=== PATIENT | male | born 1995 | race African-American/Black ===

== ENCOUNTER 2017-06-26 20:33 | Emergency (ER) | payer OTHER ==
--- NOTE | 2017-06-26 20:54 | EDM.PDOC ---
ED HPI GENERAL MEDICAL PROBLEM - General Chief Complaint: Lower Extremity Injury/Pain Stated Complaint: PAIN LT ANKLE Time Seen by Provider: 06/26/17 20:45 Source of Information: Reports: Patient History Limitations: Reports: No Limitations - History of Present Illness INITIAL COMMENTS - FREE TEXT/NARRATIVE: HISTORY AND PHYSICAL: History of present illness: [Patient comes to the emergency room complaining of left ankle pain. States that he was playing basketball a [place] the [place], when he jumped up to catch a ball he landed on his left foot which was inverted. Complains of pain with weight bearing. Has had previous sprains to this ankle but no history of fracture surgeries. ] Review of systems: As per history of present illness and below otherwise all systems reviewed and negative. Past medical history: As per history of present illness and as reviewed below otherwise noncontributory. Surgical history: As per history of present illness and as reviewed below otherwise noncontributory. Social history: No reported history of drug or alcohol abuse. Family history: As per history of present illness and as reviewed below otherwise noncontributory. Physical exam: HEENT: Atraumatic, normocephalic. Extremities: Left ankle, foot, lower leg are atraumatic in appearance. Is tender to palpation over lateral malleolus and distal tib-fib. No swelling erythema or open wounds noted. No cords or calf pain noted. Neurovascular unremarkable. Capillary refill less than 2 seconds. Neuro: Awake, alert, oriented. Pain with dorsiflexion and extension. Exam nonfocal. Diagnostics: [L tib/fib x-ray L ankle x-ray] Impression: [Left ankle sprain] Plan: [Patient is notified that x-rays are negative for fracture. Patient is placed in an air splint. Tylenol or ibuprofen as needed for discomfort. Gentle stretching. Rest ice compression and elevation. Return to ER as needed as discussed. He is in agreement with today's discussion.] Definitive disposition and diagnosis as appropriate pending reevaluation and review of above. left ankle Pain Score (Numeric/FACES): 6 - Related Data Allergies Allergy/AdvReac Type Severity Reaction Status Date / Time No Known Allergies Allergy Verified 06/26/17 20:43 Home Meds: Home Meds . [No Known Home Meds] 06/26/17 [History] Past Medical History - Past Health History Medical/Surgical History: Denies Medical/Surgical History - Infectious Disease History Infectious Disease History: Reports: None Social & Family History - Family History Family Medical History: Noncontributory - Tobacco Use Smoking Status *Q: Never Smoker - Recreational Drug Use Recreational Drug Use: Yes Drug Use in Last 12 Months: Yes Review of Systems - Review of Systems Review Of Systems: ROS reveals no pertinent complaints other than HPI. ED EXAM, GENERAL - Physical Exam Exam: See Below Course - Vital Signs Last Recorded V/S: Last Vital Signs Temp 98 F 06/26/17 20:43 Pulse 97 06/26/17 20:43 Resp 12 06/26/17 20:43 BP 141/89 H 06/26/17 20:43 Pulse Ox 99 06/26/17 20:43 - Orders/Labs/Meds Orders: Active Orders 24 hr Category Date Time Status Ankle Min 3V Lt [CR] Stat Exams 06/26/17 20:48 Taken Tibia Fibula Lt [CR] Stat Exams 06/26/17 20:48 Taken Departure - Departure Time of Disposition: 21:30 Disposition: Home, Self-Care 01 Condition: Good Clinical Impression: Left ankle sprain - Discharge Information Referrals: PCP,None [Primary Care Provider] - Forms: ED Department Discharge Additional Instructions: The following information is given to patients seen in the emergency department who are being discharged to home. This information is to outline your options for follow-up care. We provide all patients seen in our emergency department with a follow-up referral. The need for follow-up, as well as the timing and circumstances, are variable depending upon the specifics of your emergency department visit. If you don't have a primary care physician on staff, we will provide you with a referral. We always advise you to contact your personal physician following an emergency department visit to inform them of the circumstance of the visit and for follow-up with them and/or the need for any referrals to a consulting specialist. The emergency department will also refer you to a specialist when appropriate. This referral assures that you have the opportunity for follow-up care with a specialist. All of these measure are taken in an effort to provide you with optimal care, which includes your follow-up. Under all circumstances we always encourage you to contact your private physician who remains a resource for coordinating your care. When calling for follow-up care, please make the office aware that this follow-up is from your recent emergency room visit. If for any reason you are refused follow-up, please contact the [facility] emergency department at and asked to speak to the emergency department charge nurse. [facility] [address] [place] [id number] Follow-up with your primary care provider at the clinic listed above in the next 48-72 hours. Wear Aircast until your foot is feeling improved. Rest, ice, elevation. Tylenol or ibuprofen as needed for discomfort. Return to ER as needed as discussed. - My Orders Last 24 Hours: My Active Orders 06/26/17 20:48 Ankle Min 3V Lt [CR] Stat Tibia Fibula Lt [CR] Stat - Assessment/Plan Last 24 Hours: My Active Orders 06/26/17 20:48 Ankle Min 3V Lt [CR] Stat Tibia Fibula Lt [CR] Stat
--- NOTE | 2017-06-27 14:38 | CR ---
EXAM DATE: 06/26/17 PATIENT'S AGE: 21 Patient: SHAYLA RODRIGUEZ Facility: [place], [place] Site . Site : 1996 Study: XRay Extremity Left ankle [id number]/1/2018 9:16:39 PM Ordering Physician: Doctor Marrero Final Report: Indication: Sports injury Technique: Three views left ankle Comparison: None Findings: Bones: Alignment is normal. No fractures or bone lesions. Joint spaces: Unremarkable. Soft tissues: Soft tissue swelling around the lateral malleolus. Impression: Soft tissue swelling around the lateral ankle joint. No acute fracture or subluxation. Dictated by Hilary Joseph MD @ Jun 26 2017 9:24PM (Electronic Signature) Report Signed by Proxy. NORA
--- NOTE | 2017-06-27 14:42 | CR ---
EXAM DATE: 06/26/17 PATIENT'S AGE: 21 Patient: SHAYLA RODRIGUEZ Facility: [place], [place] Site . Site : 1996 Study: XRay Extremity Left tib/fib [id number]/1/2018 9:16:15 PM Ordering Physician: Doctor Marrero Final Report: INDICATION: sports injury TECHNIQUE: Two views of the left tibia/fibula COMPARISON: None FINDINGS: Bones: No fractures or bone lesions. Joint spaces: Unremarkable. Soft tissues: Unremarkable. IMPRESSION: No acute bony abnormality Dictated by Troy Harrison MD @ 06/26/2017 9:22:41 PM Dictated by: Troy Harrison MD @ 06/26/2017 21:22:47 (Electronic Signature) Report Signed by Proxy. [facility]
== END 2017-06-26 21:35 | disposition home or self-care (01) ==
LOC: MW.ED 20:33
DX: S93.402A Sprain of unspecified ligament of left ankle, initial encounter (principal); X50.1XXA Overexertion from prolonged static or awkward postures, initial encounter; Y93.67 Activity, basketball
CPT/HCPCS: 73590-26-LT; 73590-LT; 73610-26-LT; 73610-LT; 99283

== ENCOUNTER 2017-07-20 20:33 | Emergency (ER) | payer OTHER ==
--- NOTE | 2017-07-20 20:47 | EDM.PDOC ---
ED HPI GENERAL MEDICAL PROBLEM - General Chief Complaint: Laceration Stated Complaint: PT CUT HIS INDEX FINGER ON LT HAND Time Seen by Provider: 07/20/17 20:44 Source of Information: Reports: Patient History Limitations: Reports: No Limitations - History of Present Illness INITIAL COMMENTS - FREE TEXT/NARRATIVE: HISTORY AND PHYSICAL: [] 22-year-old male presenting with an injury to his left index finger History of Present Illness: []Was opening plastic to be able to cut a turkey and cut his finger Review of Systems: As per history of present illness and below otherwise all systems reviewed and negative. Past medical history: As per history of present illness and as reviewed below otherwise noncontributory. Surgical history: As per history of present illness and as reviewed below otherwise noncontributory. Social history: No reported history of drug or alcohol abuse. Family history: As per history of present illness and as reviewed below otherwise noncontributory. Physical exam: Alert and pleasant young man stating his last vaccine for tetanus was 3 years ago. In full sentences without any shortness of breath. HEENT: Atraumatic, normocehpalic, pupils reactive, negative for conjunctival pallor or scleral icterus, mucous membranes moist, throat clear, neck supple, nontender, trachea midline. Lungs: Clear to auscultation, breath sounds equal bilaterally, chest non tender. Heart: S1S2, regular, negative for clicks, rubs, or JVD. Abdomen: Soft, nondistended, nontender. Negative for masses or hepatossplenmegaly. Negative for costovertebral tenderness. Pelvis: Stable nontender. Genitourinary: Deferred. Rectal: Deferred Extremities: Left index finger anterior surface have 2 cm area that the skin has been "shaved". One pressure is released area continues to bleed. Otherwise wound is clean. Refill less than 2 seconds. Full range of motion present., negative for cords or calf pain. Neurovascular unremarkable. Neuro: Awake, alert, oriented. Cranial nerves II through XII unremarkable. Cerebellum unremarkable. Motor and sensory unremarkable throughout. Exam nonfocal. Diagnostics: [] Therapeutics: []Surgicel Sterile bandage Impression: []Laceration Plan: []Discharged to home Return for reevaluation in 2 days Return to emergency room when necessary as discussed Definitive disposition and diagnosis as appropriate pending reevaluation and review of above. Onset: Today, Sudden Duration: Minutes: Location: Reports: Upper Extremity, Left Quality: Reports: Stabbing Severity: Moderate Improves with: Reports: None Worsens with: Reports: None Associated Symptoms: Reports: No Other Symptoms Left middle finger Pain Score (Numeric/FACES): 5 - Related Data Allergies Allergy/AdvReac Type Severity Reaction Status Date / Time No Known Allergies Allergy Verified 07/20/17 20:55 Home Meds: Home Meds . [No Known Home Meds] 06/26/17 [History] Past Medical History - Past Health History Medical/Surgical History: Denies Medical/Surgical History - Infectious Disease History Infectious Disease History: Reports: None Social & Family History - Family History Family Medical History: Noncontributory - Tobacco Use Smoking Status *Q: Never Smoker - Recreational Drug Use Recreational Drug Use: Yes Drug Use in Last 12 Months: Yes ED ROS GENERAL - Review of Systems Review Of Systems: ROS reveals no pertinent complaints other than HPI. ED EXAM, SKIN/RASH Exam: See Below (see dictation) Course - Vital Signs Last Recorded V/S: Last Vital Signs Temp 36.6 C 07/20/17 20:33 Pulse 70 07/20/17 20:33 Resp 18 07/20/17 20:33 BP 136/96 H 07/20/17 20:33 Pulse Ox 97 07/20/17 20:33 Departure - Departure Time of Disposition: 21:01 Disposition: Home, Self-Care 01 Condition: Good Clinical Impression: Laceration - Discharge Information Instructions: Laceration Care, Adult, [id number] Referrals: PCP,None [Primary Care Provider] - Forms: ED Department Discharge Additional Instructions: The following information is given to patients seen in the emergency department who are being discharged to home. This information is to outline your options for follow-up care. We provide all patients seen in our emergency department with a follow-up referral. The need for follow-up, as well as the timing and circumstances, are variable depending upon the specifics of your emergency department visit. If you don't have a primary care physician on staff, we will provide you with a referral. We always advise you to contact your personal physician following an emergency department visit to inform them of the circumstance of the visit and for follow-up with them and/or the need for any referrals to a consulting specialist. The emergency department will also refer you to a specialist when appropriate. This referral assures that you have the opportunity for followup care with a specialist. All of these measure are taken in an effort to provide you with optimal care, which includes your followup. Under all circumstances we always encourage you to contact your private physician who remains a resource for coordinating your care. When calling for followup care, please make the office aware that this follow-up is from your recent emergency room visit. If for any reason you are refused follow-up, please contact the [facility] emergency department at and asked to speak to the emergency department charge nurse. Follow-up as recommended return to the ER in 2 days for wound evaluation
== END 2017-07-20 21:17 | disposition home or self-care (01) ==
LOC: MW.ED 20:33
DX: S61.211A Laceration without foreign body of left index finger without damage to nail, initial encounter (principal); W45.8XXA Other foreign body or object entering through skin, initial encounter; Y93.89 Activity, other specified
CPT/HCPCS: 99282; 99283